=== PATIENT | female | born 1965 | race Caucasian/White ===

== ENCOUNTER 2023-01-01 13:58 | Inpatient (IN) | payer OTHER ==
[~2023-01-01] VITALS: Ht 165.1 cm; Wt 81.6 kg
[~2023-01-01 13:58] MED LIST: AMBIEN5 MG; KLONOPIN1 MG/TAB; LEXAPRO20 MG
[2023-01-01] MEDS ORDERED: EZALLOR SPRINKL10 MG PO (14:04)
[2023-01-01] MEDS ORDERED: COZAAR50 MG PO (14:04)
[2023-01-01] MEDS ORDERED: SERTRALINE HCL50 MG PO (14:05)
== END 2023-01-07 14:23 | disposition home or self-care (01) | DRG 331 ==
LOC: ER 13:58 → O/R 17:07 → SEC-K 17:07 → SURH 17:07 → O/R 19:16 → SURG 22:41 → SURH 01-02 01:21
PROVIDERS: Nurse Practitioner Family; Surgery; ADMIT Internal Medicine; ATTEND Internal Medicine
PROC: 0DTJ4ZZ Resection of Appendix, Percutaneous Endoscopic Approach (ICD-10-PCS; 2023-01-01)
PROC: 0WQF4ZZ Repair Abdominal Wall, Percutaneous Endoscopic Approach (ICD-10-PCS; 2023-01-01)
PROC: 0W9F4ZZ Drainage of Abdominal Wall, Percutaneous Endoscopic Approach (ICD-10-PCS; 2023-01-01)
PROC: 0DBH4ZZ Excision of Cecum, Percutaneous Endoscopic Approach (ICD-10-PCS; principal; 2023-01-01 19:15)
PROC: BW21YZZ Computerized Tomography (CT Scan) of Abdomen and Pelvis using Other Contrast (ICD-10-PCS; 2023-01-04)
DX: K35.33 Acute appendicitis with perforation, localized peritonitis, and gangrene, with abscess (principal); K43.9 Ventral hernia without obstruction or gangrene; I10 Essential (primary) hypertension; E78.5 Hyperlipidemia, unspecified